=== PATIENT | male | born 1950 | race Caucasian/White ===

== ENCOUNTER 2017-01-14 14:08 | Observation (INO) | payer OTHER ==
[2017-01-14] MEDS ORDERED: ONDANSETRON 4 MG/2 ML VIAL ONE (14:38)
[2017-01-14] MEDS ORDERED: HYDROmorphONE/DILAUDID 1 MG/ML SYR ONE (14:38)
--- NOTE | 2017-01-14 14:39 | EDPHY ---
H & P Smoking Status: Former smoker Time Seen by Provider: 01/14/17 14:18 HPI/ROS: Abdominal pain HPI. 66-year-old male presents with abdominal pain that began at 3:30 a.m. this morning. He has a history of small-bowel was yesterday. Feels he is passing some gas. He has nausea without vomiting. In 2008 patient had bladder cancer and nephrectomy and then again subsequent bowel obstruction. He has been well since that happened. Pain is periumbilical crampy, coming in waves. No radiation to the back. Not worse with movement ROS Constitutional. no fever/chills, no weakness Eyes. no problems with vision ENT. no sore throat, no nasal drainage Cardiovascular. no chest pain Respiratory. no shortness of breath, no cough Abdominal. Periumbilical abdominal pain . no problems urinating MS. no calf pain/swelling, no neck/back pain, no joint pain Skin. no rash Lymph. no swollen glands Neuro. no headache, no dizziness, no difficulty walking or with speech (Geovanni Pringle) Past Medical/Surgical History: Bladder cancer, nephrectomy, small-bowel obstruction (Geovanni Pringle) Social History: , nonsmoker, no alcohol (Geovanni Pringle) Physical Exam: General Appearance: Alert well-developed male moderate distress vital signs are stable Eyes: Pupils equal and round no pallor or injection. ENT, Mouth: Mucous membranes are moist. Respiratory: There are no retractions, lungs are clear to auscultation. Cardiovascular: Regular rate and rhythm. Gastrointestinal: Abdomen is soft periumbilical tenderness. No masses. Decreased bowel sounds Neurological: Awake and alert, sensory and motor exams grossly normal. Skin: Warm and dry, no rashes. Musculoskeletal: Neck is supple nontender. Extremities symmetrical, full range of motion. Psychiatric: Patient is oriented X 3, there is no agitation. (Geovanni Pringle) Constitutional: Initial Vital Signs Temperature (C) 36.3 C 01/14/17 14:15 Heart Rate 70 01/14/17 14:15 Respiratory Rate 18 01/14/17 14:15 Blood Pressure 154/87 H 01/14/17 14:15 O2 Sat (%) 97 01/14/17 14:15 O2 Delivery Mode Room Air O2 (L/minute) 2 Allergies/Adverse Reactions: ENVIRONMENTAL Allergy (Mild, Uncoded 10/01/10 12:57) NASAL CONGESTION Home Medications: Medication Instructions Recorded Allergy Pill 07/26/09 DIOVAN 07/26/09 SIMVASTATIN 07/26/09 Singulair 07/26/09 Medical Decision Making - Diagnostics Imaging: Imaging Impressions Abdomen CT 01/14/17 15:03 Impression: 1. Small bowel obstruction with a small amount of free fluid. Suspect distal jejunal adhesion. 2. Severe emphysema. 3. No evidence of metastatic renal cell or bladder carcinoma. Results called and discussed with Geovanni Pringle, at 01/14/2017 15:56 General information for patients regarding this examination can be found at [email or web address]. If you have questions or comments about this report, please contact me at [phone] (hospital) or [phone] (cell). Procedures: IV normal saline. Dilaudid for pain. Zofran for nausea. 1 L of saline given ( Geovanni Pringle) CT scan of the [ ]. The results of the study are [ ]. The study was read by [ ]. [I viewed the images myself on the PACS system.] (Presley Jo) Care Turn Over: Dr. Jo at 3:00 p.m. (Geovanni Pringle) 1604: Dr. Leon called me about this patient's CT scan does show admit got small-bowel obstruction. Distended abdomen, fluid in stomach needs NG tube. Will order NG tube consult surgery Dr. Prabhakar who will see and evaluate the patient. Plan for NG tube admission. Med surg service. SBO. CT scan of the abdomen pelvis with IV contrast. The results of the study are this shows a small-bowel obstruction mid gut. The study was read by Dr. Leon. I viewed the images myself on the PACS system (Presley Jo) - Data Points Laboratory Results: Laboratory Results 01/14/17 14:43 01/14/17 14:43 01/14/17 01/14/17 14:43 14:43 WBC 11.22 10^3/uL H 10^3/uL (3.80-9.50) RBC 5.42 10^6/uL 10^6/uL (4.40-6.38) Hgb 15.9 g/dL g/dL (13.7-17.5) Hct 47.0 % % (40.0-51.0) MCV 86.7 fL fL (81.5-99.8) MCH 29.3 pg pg (27.9-34.1) MCHC 33.8 g/dL g/dL (32.4-36.7) RDW 12.6 % % (11.5-15.2) Plt Count 254 10^3/uL 10^3/uL (150-400) MPV 9.9 fL fL (8.7-11.7) Neut % (Auto) 81.8 % H % (39.3-74.2) Lymph % (Auto) 11.4 % L % (15.0-45.0) [place] % (Auto) 5.0 % % (4.5-13.0) Eos % (Auto) 1.0 % % (0.6-7.6) Baso % (Auto) 0.3 % % (0.3-1.7) Nucleat RBC Rel Count 0.0 % % (0.0-0.2) Absolute Neuts (auto) 9.18 10^3/uL H 10^3/uL (1.70-6.50) Absolute Lymphs (auto) 1.28 10^3/uL 10^3/uL (1.00-3.00) Absolute Monos (auto) 0.56 10^3/uL 10^3/uL (0.30-0.80) Absolute Eos (auto) 0.11 10^3/uL 10^3/uL (0.03-0.40) Absolute Basos (auto) 0.03 10^3/uL 10^3/uL (0.02-0.10) Absolute Nucleated RBC 0.00 10^3/uL 10^3/uL (0-0.01) Immature Gran % 0.5 % % (0.0-1.1) Immature Gran # 0.06 10^3/uL 10^3/uL (0.00-0.10) Sodium 138 mEq/L mEq/L (134-144) Potassium 4.7 mEq/L mEq/L (3.5-5.2) Chloride 103 mEq/L mEq/L (97-110) Carbon Dioxide 24 mEq/l mEq/l (22-31) Anion Gap 11 mEq/L mEq/L (8-16) BUN 23 mg/dL mg/dL (7-23) Creatinine 1.3 mg/dL mg/dL (0.7-1.3) Estimated GFR 55 Glucose 124 mg/dL H mg/dL (70-100) Calcium 10.3 mg/dL mg/dL (8.5-10.4) Medications Given: Discontinued Medications Hydromorphone HCl (Dilaudid) 0.5 mg IVP EDNOW ONE Stop: 01/14/17 15:04 Last Admin: 01/14/17 15:10 Dose: 0.5 mg Ondansetron HCl (Zofran) 4 mg IVP EDNOW ONE Stop: 01/14/17 14:56 Last Admin: 01/14/17 15:10 Dose: 4 mg Departure - Departure Disposition: [facility] Inpatient Acute Clinical Impression: SBO (small bowel obstruction) Condition: Fair Referrals: Loki Prather MD [Primary Care Provider] - As per Instructions
[2017-01-14] MEDS ORDERED: ONDANSETRON 4 MG/2 ML VIAL IVP ONE (14:55)
[2017-01-14] MEDS ORDERED: HYDROmorphONE/DILAUDID 1 MG/ML SYR IVP ONE (15:03)
[2017-01-14 15:06] LABS: % IMMATURE GRANULYOCYTES 0.5 % (0.0-1.1); ABSOLUTE IMMATURE GRANULOCYTES 0.06 10^3/uL (0.00-0.10); ADD DIFF? NO; ADD MORPH? NO; ADD SCAN? NO; ATYPICAL LYMPHOCYTE FLAG 0 (0-99); FRAGMENT RBC FLAG 0 (0-99); HEMOGLOBIN 15.9 g/dL (13.7-17.5); LEFT SHIFT FLG 0 (0-99); LIPEMIA HEMOLYSIS FLAG 90 (0-99); MEAN CELL HEMOGLOBIN 29.3 pg (27.9-34.1); MEAN CELL HEMOGLOBIN CONCENTR. 33.8 g/dL (32.4-36.7); MEAN CELL VOLUME 86.7 fL (81.5-99.8); MEAN PLATELET VOLUME 9.9 fL (8.7-11.7); PLATELET CLUMPS FLAG 0 (0-99); PLATELET COUNT 254 10^3/uL (150-400); RED BLOOD CELL COUNT 5.42 10^6/uL (4.40-6.38); RED CELL DISTRIBUTION WIDTH 12.6 % (11.5-15.2)
[2017-01-14 15:07] LABS: ANION GAP 11 mEq/L (8-16); CALCIUM 10.3 mg/dL (8.5-10.4); CARBON DIOXIDE 24 mEq/l (22-31); CHLORIDE 103 mEq/L (97-110); CREATININE 1.3 mg/dL (0.7-1.3); GLOMERULAR FILTRATION RATE 55; GLUCOSE 124 mg/dL (70-100); POTASSIUM 4.7 mEq/L (3.5-5.2); SODIUM 138 mEq/L (134-144)
[2017-01-14] MEDS ORDERED: IOPAMIDOL (ISOVUE-300) 100 ML BTL IV ONE (15:16)
[2017-01-14] MEDS ORDERED: OXYMETAZOLINE 30 ML NASAL SPRAY ONE (16:25)
[2017-01-14] MEDS ORDERED: CETACAINE SPRAY 20 GM TP ONE (16:25)
[2017-01-14] MEDS ORDERED: HYDROmorphONE/DILAUDID 1 MG/ML SYR IVP PRN ×2 (16:47→17:49)
[2017-01-14] MEDS ORDERED: ACETAMINOPHEN 325 MG TAB PO PRN (16:47)
[2017-01-14] MEDS ORDERED: ONDANSETRON 4 MG/2 ML VIAL IVP PRN (16:47)
[2017-01-14] MEDS ORDERED: D5W 1/2 NS W/ 20 KCl/L 1,000 ML IV SCH (17:00)
--- NOTE | 2017-01-14 17:13 | GHP ---
[f rep st] HISTORY AND PHYSICAL DATE OF ADMISSION: 01/14/2017 CHIEF COMPLAINT: Abdominal pain. HISTORY OF PRESENT ILLNESS: This is an otherwise healthy 66-year-old male, who presents to the [facility] department with acute onset abdominal pain. The patient states that he was in his usual state of health. He played a whole 18 holes of golf yesterday, which he walked. States that he felt a l ittle off last evening, drank a significant amount of water. Last evening, began to have some abdom inal discomfort which persisted throughout the evening. This morning, awoke, he had persistent abdo lilian pain which worsened throughout the morning, which got to the point where he was concerned enou gh, he drove himself to the emergency department. He stated that en route, he felt as though his ab dominal pain was bad enough that he would need to stop, but was able to make it successfully. Here in the emergency room, he received minimal IV narcotics and states that his pain has completely reso lved. He endorses having a little bit of nausea, has not vomited. States that his last bowel movem ent was yesterday, and does feel that he is continuing to pass gas. Of note, the patient underwent a right radical nephrectomy laparoscopically performed in 2008 for a renal cell cancer. Subsequently, 3 years later, in 2011, he had similar symptoms which he sat at [facility] on for multiple days, and presented, from what the patient states, in a fair amount of distress t o an outside hospital, where he was admitted with a small bowel obstruction at that time. Per the arya cotter's report, this small bowel obstruction was treated conservatively. He did not require any op erative intervention, and was subsequently discharged home. He states that the pain that he was exp eriencing today was similar to that time, although not as bad, as he caught it sooner. He denies lakhani ving fevers or chills, and other than the abdominal pain and mild amount of nausea, has no other com plaints. PAST MEDICAL HISTORY: COPD, CAD, obstructive sleep apnea, PAST SURGICAL HISTORY: Laparoscopic radical nephrectomy. ALLERGIES: To foods. CURRENT MEDICATIONS: None. REVIEW OF SYSTEMS: A full 10-point review was performed and unless explicitly stated above, is othe rwise negative. PHYSICAL EXAM: VITAL SIGNS: Temperature 36.3, blood pressure 158/87, heart rate 70, and he is 97% on room air. GENERAL: He is alert and oriented, in no acute distress. CARDIOVASCULAR: He has a r egular rate and rhythm without any murmurs. LUNGS: Clear to auscultation bilaterally. ABDOMEN: S oft, nondistended, nontender without rebound tenderness or guarding. His previous laparoscopic inci sions are well healed and consistent with previous surgical history. EXTREMITIES: Warm and well pe rfused. LABS: White blood cell count is elevated at 11, H and H are stable at 16 and 47. Chemistries are u nremarkable with the exception of an elevated glucose at 124. CT scan of the abdomen and pelvis shows distended stomach and some dilated small bowel loops, likely showing small bowel obstruction, suspected in the distal jejunum, likely secondary to adhesive dise ase. It also notes that he has severe emphysema. ASSESSMENT AND PLAN: A 66-year-old male with recurrent what appears to be partial small bowel obstr uction. On my examination in the emergency department, the patient states that he has 0 pain and cu rrently, has no nausea. He feels well and would actually like to go home. I did discuss with him t he fact that he does have some concerning findings on his CT scan and leukocytosis. I feel he warrhudson nts at least an overnight admission for observation to ensure that he passes and continues to do wel l. I anticipate that he will pass this again with conservative measures, as he already feels well a nd continues to pass gas in the emergency department. Given the fact that he has a significant amou nt of gastric dilatation with fluid, I have asked the emergency department to place a nasogastric tu be which I feel will help decompress. We will plan to admit the patient, maintain n.p.o., gentle fl uid hydration, and evaluate in the morning for small bowel follow-through versus feeding trial at th at time. I discussed this and prospective hospital course with the patient. All questions were ans wered. /[id number]/MODL
[2017-01-14] MEDS ORDERED: LOSARTAN POTASSIUM 50 MG TAB PO SCH (21:00)
[2017-01-14 23:36] LABS: COLOR YELLOW; LEUKOCYTE ESTERASE,URINE NEGATIVE (NEGATIVE); NITRITE,URINE NEGATIVE (NEGATIVE)
[2017-01-15 05:01] LABS: % IMMATURE GRANULYOCYTES 0.7 % (0.0-1.1); ABSOLUTE IMMATURE GRANULOCYTES 0.07 10^3/uL (0.00-0.10); ADD DIFF? NO; ADD MORPH? NO; ADD SCAN? NO; ATYPICAL LYMPHOCYTE FLAG 0 (0-99); FRAGMENT RBC FLAG 0 (0-99); HEMATOCRIT 46.9 % (40.0-51.0); HEMOGLOBIN 15.5 g/dL (13.7-17.5); LEFT SHIFT FLG 0 (0-99); LIPEMIA HEMOLYSIS FLAG 80 (0-99); MEAN CELL HEMOGLOBIN 29.8 pg (27.9-34.1); MEAN PLATELET VOLUME 9.8 fL (8.7-11.7); PLATELET CLUMPS FLAG 0 (0-99); PLATELET COUNT 241 10^3/uL (150-400); RED BLOOD CELL COUNT 5.21 10^6/uL (4.40-6.38); RED CELL DISTRIBUTION WIDTH 12.5 % (11.5-15.2)
[2017-01-15 05:11] LABS: ANION GAP 6 mEq/L (8-16); CALCIUM 9.5 mg/dL (8.5-10.4); CARBON DIOXIDE 30 mEq/l (22-31); CHLORIDE 103 mEq/L (97-110); CREATININE 1.3 mg/dL (0.7-1.3); GLOMERULAR FILTRATION RATE 55; GLUCOSE 106 mg/dL (70-100); POTASSIUM 4.4 mEq/L (3.5-5.2); SODIUM 139 mEq/L (134-144)
[2017-01-15 07:44] VITALS: BP 124/76; PULSE 56; RESP 15; TEMP 97.8; O2SAT 94
--- NOTE | 2017-01-15 09:15 | SOAPPROG ---
SOAP Progress Note Assessment/Plan: Assessment: HD # 2 for small bowel obstruction ? Adhesion from previous radical nephrectomy Passing flatus and gas I removed the NG Sips and chips this am. Clears at lunch. If tolerates home on clears and advance to low fiber low residue diet SBFT as outpatient S: Passing flatus, two small BM O Plan: 01/15/17 09:13 Objective: Vital Signs Temp Pulse Resp BP Pulse Ox 36.6 C 56 L 15 124/76 H 94 01/15/17 07:43 01/15/17 07:43 01/15/17 07:43 01/15/17 07:43 01/15/17 07:43 Laboratory Results 01/15/17 04:28 01/15/17 04:28 01/14/17 01/15/17 01/16/17 05:59 05:59 05:59 Output Total 750 500 Balance -750 -500 Physical Exam - Physical Exam General Appearance: WD/WN, alert, no apparent distress, other ( at bedside) EENT: PERRL/EOMI, normal ENT inspection Respiratory: chest non-tender, lungs clear Cardiac/Chest: regular rate, rhythm, No edema Abdomen: normal bowel sounds, non-tender, soft Rectal: deferred Skin: normal color, warm/dry Extremities: normal range of motion Neuro/Psych: alert, normal mood/affect ICD10 Worksheet Patient Problems: Problems Problem Status Onset SBO (small bowel obstruction) Acute
--- NOTE | 2017-01-19 11:38 | GDS ---
[f rep st] DISCHARGE SUMMARY DISCHARGE DIAGNOSIS: Small bowel obstruction. Other pertinent diagnoses include laparoscopic radic al nephrectomy for renal cell cancer, chronic obstructive pulmonary disease, coronary artery disease , obstructive sleep apnea. SPECIAL TESTS: CT scan of the abdomen and pelvis on 01/14/2017 showed a small bowel obstruction wit h a small amount of free fluid with a suspected distal jejunal adhesion. He also had severe emphyse ma seen and no evidence of metastatic renal cell or bladder carcinoma. Please see report for detail s. HOSPITAL COURSE: The patient is a 66-year-old male with a history of abdominal surgery who presente d to the emergency department with complaints of crampy wave like abdominal pain, associated with na usea. He had a CT scan that was consistent with a small-bowel obstruction. He was admitted by [facility]. A nasogastric tube was placed due to his significant gastric dilatation. He was maintained n.p.o. a nd gently hydrated with IV fluids. Antiemetics and pain medicines were ordered on an as needed basi s. He was observed overnight. The patient's overall condition improved. His nasogastric tube was removed. He was advanced to a c lear liquid diet and then to a low-fiber, low-residue diet. Upon discharge, he was passing gas. DISCHARGE INSTRUCTIONS: Patient was discharged to home in stable condition with plans for outpatien t followup and a small-bowel follow-through as an outpatient. /[id number]/MODL
== END 2017-01-15 17:36 | disposition home or self-care (01) ==
LOC: INTOOBSV 16:14 → F3N 17:46
PROVIDERS: ADMIT Surgery; ATTEND Surgery
PROC: 0D9670Z Drainage of Stomach with Drainage Device, Via Natural or Artificial Opening (ICD-10-PCS; principal; 2017-01-14)
DX: K56.69 Other intestinal obstruction (principal); J44.9 Chronic obstructive pulmonary disease, unspecified; I25.10 Atherosclerotic heart disease of native coronary artery without angina pectoris; G47.33 Obstructive sleep apnea (adult) (pediatric); Z85.528 Personal history of other malignant neoplasm of kidney; Z85.51 Personal history of malignant neoplasm of bladder; Z90.5 Acquired absence of kidney; Z87.891 Personal history of nicotine dependence
CPT/HCPCS: 43753; 74177; G0378; J1170; J2405; Q9967; 96374

== ENCOUNTER → 2017-06-10 | Outpatient (CLI) | payer OTHER | LOC: FIMAGING 08:40 | PROVIDERS: ATTEND Internal Medicine | DX: R91.8 Other nonspecific abnormal finding of lung field (principal); J43.9 Emphysema, unspecified ==

== ENCOUNTER → 2017-11-07 | Outpatient (CLI) | payer OTHER | LOC: BMCIMAGING 12:48 | PROVIDERS: ATTEND Internal Medicine | DX: S62.615A Displaced fracture of proximal phalanx of left ring finger, initial encounter for closed fracture (principal) ==

== ENCOUNTER 2018-03-13 05:44 | Day surgery (SDC) | payer OTHER ==
[2018-03-13] MEDS ORDERED: ceFAZolin 2 GM/DEXTROSE 100 ML IV ONE (06:01)
[2018-03-13] MEDS ORDERED: LR 1,000 ML IV ONE (06:01)
[2018-03-13] MEDS ORDERED: BUPIVACAINE/EPI 0.5% 30 ML SDV ONE (06:18)
[2018-03-13] MEDS ORDERED: BUPIVACAINE 0.25% 30 ML SDV ONE (06:19)
[2018-03-13] MEDS ORDERED: EPINEPHrine 1 MG/ML INJ ONE (06:19)
--- NOTE | 2018-03-13 06:51 | PDHPUP ---
History & Physical Update H&P update statement: This history and physical update is based on an assessment of the patient which was completed after admission or registration (within 24 hours), but prior to the surgery/procedure. H&P update: H&P reviewed & patient examined, no change in patient's condition since H&P completed
--- NOTE | 2018-03-13 07:01 | PDANEPAE ---
ANE Past Medical History - Cardiovascular History Hx Hypertension: Yes Hx Arrhythmias: No Hx Chest Pain: No Hx Coronary Artery / Peripheral Vascular Disease: No Hx CHF / Valvular Disease: No Hx Palpitations: No Cardiovascular History Comment: BP CAN RUN 120-138 SYSTOLIC;. ON CHOL RX - Pulmonary History Hx COPD: Yes Hx Asthma/Reactive Airway Disease: No Hx Recent Upper Respiratory Infection: No Hx Oxygen in Use at Home: No Hx Sleep Apnea: Yes Sleep Apnea Screening Result - Last Documented: Positive Pulmonary History Comment: MILD EMPHYSEMA PER [employer]ANG[employer]L SCIENTOLOGIST. TIAN W/CPAP. - Neurologic History Hx Cerebrovascular Accident: No Hx Seizures: No Hx Dementia: No - Endocrine History Hx Diabetes: No Hypothyroid: No Hyperthyroid: No Obesity: no - Renal History Hx Renal Disorders: Yes Renal History Comment: RENAL AND BLADDER CA-NOCTURIA X2; - Liver History Hx Hepatic Disorders: No - Neurological & Psychiatric Hx Hx Neurological and Psychiatric Disorders: No - Cancer History Hx Cancer: Yes Cancer History Comment: BLADDER, R RENAL. - Congenital Disorder History Hx Congenital Disorders: No - GI History GERD: moderate Hx Gastrointestinal Disorders: Yes Gastrointestinal History Comment: GERD-ON RX - Other Health History Other Health History: ABRASION R FRONT LEG - Chronic Pain History Chronic Pain: No - Surgical History Prior Surgeries: R NEPHRECTOMY ';. CYSTO ','; ANE Review of Systems Review of Systems: - Exercise capacity Exercise capacity: >=4 METS METS (RN): 4 METS ANE Patient History - Allergies Allergies/Adverse Reactions: ENVIRONMENTAL Allergy (Mild, Uncoded 03/06/18 13:02) NASAL CONGESTION - Home Medications Home Medications: Montelukast Sodium [Singulair 10 mg (*)] 10 mg PO HS 07/26/09 [Last Taken ] Fexofenadine HCl [[place] Allergy] 30 mg PO BID 01/14/17 [Last Taken 03/12/18] Fluticasone Nasal [Flonase Nasal [place]] 1 sprays EACHNARE BID 01/14/17 [Last Taken 03/12/18] Herbals/Supplements -Info Only 1 ea PO DAILY 01/14/17 [Last Taken 1 Week Ago ~] Losartan Potassium [Cozaar 50 mg (*)] 50 mg PO HS 01/14/17 [Last Taken 03/12/18] Multivitamins [Multivitamin (*)] 1 each PO DAILY 01/14/17 [Last Taken 1 Week Ago ~03/06/18] Omeprazole 40 mg PO DAILY 01/14/17 [Last Taken 03/12/18] Atorvastatin Calcium 03/06/18 [Last Taken 03/12/18] - NPO status NPO Since - Liquids (Date): 03/13/18 NPO Since - Liquids (Time): 20:30 NPO Since - Solids (Date): 03/12/18 NPO Since - Solids (Time): 20:00 - Anes Hx Anes Hx: post operative cognitive dysfunction Hx Anesthesia Complications (with details): mild memory disturbance - Smoking Hx Smoking Status: Former smoker Marijuana use: No - Alcohol Use Alcohol Use: Occasionally - Family Anes Hx Family Anes Hx: neg - N/A ANE Labs/Vital Signs - Vital Signs Blood Pressure: 169/106 Heart Rate: 57 Respiratory Rate: 18 O2 Sat (%): 95 Height: 172.72 cm Weight: 73.482 kg ANE Physical Exam - Airway Neck exam: FROM Mallampati Score: Class 2 Mouth exam: normal dental/mouth exam - Pulmonary Pulmonary: no respiratory distress, no rales or rhonchi, clear to auscultation - Cardiovascular Cardiovascular: regular rate and rhythym, systolic murmur - ASA Status ASA Status: II ANE Anesthesia Plan Anesthesia Plan: general endotracheal anesthesia Total IV Anesthesia: No
[2018-03-13] MEDS ORDERED: ROCURONIUM 50 MG/5 ML VIAL ONE (07:20)
[2018-03-13] MEDS ORDERED: DEXAMETHASONE 4 MG/ML VIAL ONE (07:20)
[2018-03-13] MEDS ORDERED: fentaNYL 100 MCG/2 ML INJ ONE ×3 (07:20→09:03)
[2018-03-13] MEDS ORDERED: PROPOFOL 200 MG/20 ML VIAL ONE (07:20)
[2018-03-13] MEDS ORDERED: ONDANSETRON 4 MG/2 ML VIAL ONE (07:20)
[2018-03-13] MEDS ORDERED: LIDOCAINE 2% 5 ML SDV ONE (07:21)
[2018-03-13] MEDS ORDERED: REMIFENTANIL HCL 1 MG VIAL ONE (07:34)
[2018-03-13] MEDS ORDERED: PROPOFOL/EMULSION 500 MG/50 ML BOTTLE IV ONE (07:34)
[2018-03-13] MEDS ORDERED: ENALAPRILAT DIHYDRATE 1.25 MG/ML VIAL IVP PRN (07:58)
[2018-03-13] MEDS ORDERED: PHENYLEPHRINE HCL 100 MCG/ML SYR IVP PRN (07:58)
[2018-03-13] MEDS ORDERED: NALOXONE HCL 0.4 MG/ML INJ IVP PRN (07:58)
[2018-03-13] MEDS ORDERED: LR 500 ML IV PRN (07:58)
[2018-03-13] MEDS ORDERED: ONDANSETRON 4 MG/2 ML VIAL IVP PRN (07:58)
[2018-03-13] MEDS ORDERED: HYDROCODONE/APAP 5/325 TAB PO PRN (07:58)
[2018-03-13] MEDS ORDERED: PROMETHAZINE HCL 25 MG/ML INJ IVP PRN (07:58)
[2018-03-13] MEDS ORDERED: ACETAMINOPHEN 500 MG TAB PO PRN (07:58)
[2018-03-13] MEDS ORDERED: GLYCOPYRROLATE 0.2 MG/1 ML VIAL ONE ×3 (08:37)
[2018-03-13] MEDS ORDERED: NEOSTIGMINE METHYLSULFATE 10 MG/10 ML MDV ONE (08:37)
[2018-03-13] MEDS ORDERED: KETOROLAC 30 MG/1 ML SDV ONE (08:43)
[2018-03-13] MEDS: fentaNYL 100 MCG/2 ML INJ IVP PRN ×2 (09:04→09:14)
--- NOTE | 2018-03-13 09:22 | POSTOPPROG ---
Post Op Note Date of Operation: 03/13/18 Surgeon: Jovanny Prabhakar Brake Coupler Dinkey: Jennifer New NP Anesthesiologist: Smitha Anesthesia: GET(General Endotracheal) Pre-op Diagnosis: RIH Post-op Diagnosis: same Procedure: Robotic assisted lap right inguinal hernia repair with mesh Findings: large R indirect defect Inf/Abcess present in the surg proc area at time of surgery?: No EBL: Minimal
[2018-03-13] MEDS ORDERED: ACETAMINOPHEN 500 MG TAB ONE (10:04)
[2018-03-13] MEDS ORDERED: oxyCODONE IR 5 MG TAB ONE ×2 (10:04→10:41)
--- NOTE | 2018-03-13 10:04 | POSTANESTH ---
Post Anesthetic Evaluation Cardiovascular Status: Normal, Stable Respiratory Status: Normal, Stable Level of Consciousness/Mental Status: Can Participate in Eval Pain Control: Adequate, Prn Tx Ordered Nausea/Vomiting Control: Adequate, Prn Tx Ordered Complications Possibly Related to Anesthesia: None Noted
[2018-03-13] MEDS: oxyCODONE IR 5 MG TAB PO PRN ×2 (10:06→10:47)
--- NOTE | 2018-03-13 10:16 | GOP ---
[f rep st] OPERATIVE REPORT DATE OF OPERATION: 03/13/2018 SURGEON: Jovanny Prabhakar MD PROJECT CONTROLS SPECIALIST: Jennifer Ivy NP ANESTHESIA: General endotracheal. ANESTHESIOLOGIST: Dr. Cartwright. PREOPERATIVE DIAGNOSIS: Right inguinal hernia. POSTOPERATIVE DIAGNOSIS: Right inguinal hernia. PROCEDURE PERFORMED: Robotic assisted right inguinal hernia repair with mesh. FINDINGS: Large indirect hernia on the right side, successfully reduced. Cord structures protected. Defect repaired with Bard 3D Light large-size mesh. SPECIMENS: None. ESTIMATED BLOOD LOSS: 5 cc. DESCRIPTION OF PROCEDURE: The patient was greeted in the preoperative suite. Once again, risks, david efits, and alternatives were discussed. Consent was signed. He was then brought back to the operati ve suite, placed on the OR table in supine position. After all anesthesia machines, including SCDs w ere on and functioning, World Health Organization time-out was performed ending with all in agreement . After successful induction of general anesthesia, the patient's abdomen was prepped and draped in typical sterile fashion. I entered the abdomen via a supraumbilical cutdown through which the Veress needle was passed. I ach ieved pneumoperitoneum to 15 mmHg CO2, which was well tolerated by the patient. Through this, I inse rted an 8 mm robotic trocar. Once in the abdomen, I inserted 2 additional 8 mm trocars, 1 in the rig ht and 1 in the left upper quadrant, both under direct visualization. The patient was then placed in gentle Trendelenburg position and I successfully docked the robot. I identified the defect on the right side. I created a peritoneal flap just medial to the ASIS and c arried this medial to the pubic tubercle. I dissected down to Wild ligament medially, as well as t he extent of the dissection laterally. A large indirect defect was identified. The sac was adherent to the cord structures. I successfully took it off the cord structures and reduced the sac complete ly. The flap and pocket was then made appropriate for my mesh. The mesh was then brought in. It wa s a Bard 3D Light large-size mesh. It was tacked to Wild ligament using an interrupted 2-0 Vicryl suture on either side of the inferior epigastric vessels. Once it was allowed to lay in appropriate position, the peritoneal defect was closed with a running V-Loc suture. I looked on the left side. There was no apparent defect in either direct or indirect areas. Again on the right side, I identifi ed no femoral or direct or obturator defects. Pneumoperitoneum was then evacuated. The robot was undocked. The port sites were closed with interr upted Monocryl. Dermabond was placed. The patient was then extubated in the operative suite and tiffany en to the PACU in satisfactory condition. DRAINS: None. COUNTS: All counts were reported as correct x2. /[id number]/MODL
[2018-03-13 11:18] VITALS: BP 155/93
== END 2018-03-13 11:23 | disposition home or self-care (01) ==
LOC: FSGY 05:44
PROVIDERS: ATTEND Surgery
DX: K40.90 Unilateral inguinal hernia, without obstruction or gangrene, not specified as recurrent (principal); C67.9 Malignant neoplasm of bladder, unspecified; I25.10 Atherosclerotic heart disease of native coronary artery without angina pectoris; J44.9 Chronic obstructive pulmonary disease, unspecified; Z90.5 Acquired absence of kidney
CPT/HCPCS: C1781; J0171; J0690; J1100; J1885; J2270; J2405; J2704; J3010